=== PATIENT | male | born 1935 | race Caucasian/White ===

== ENCOUNTER → 2020-06-21 | Day surgery (SDC) | payer MEDICARE, OTHER ==
[~2020-06-21] MED LIST: ASPIRIN EC81 MG PO; CARAFATE1 GM PO; CARBIDOPA-LEVO1 EAC6 PO; CLARITIN10 MG PO; FLORINEF0.1 MG PO; ISOSORBIDE MONO60 M1 PO; LEVETIRACETAM500 MG PO; LIPITOR20 MG PO; LISINOPRIL10 MG PO; LOPID600 MG PO; LOPRESSOR25 MG PO; LOVAZA1 GM PO; PROAMATINE5 MG PO; PROSCAR5 MG PO; PROTONIX 40MG T40 MG PO; REMERON15 MG PO; STOOL SOFTENER50 MG PO; TEGRETOL200 MG PO; VENTOLIN HFA IN18 GM INH; ZOLOFT50 MG PO
== END | disposition home or self-care (01) ==
LOC: FAS 07:40
DX: K22.2 Esophageal obstruction (principal); D12.0 Benign neoplasm of cecum; D12.2 Benign neoplasm of ascending colon; K20.80 Other esophagitis without bleeding; K44.9 Diaphragmatic hernia without obstruction or gangrene; K25.9 Gastric ulcer, unspecified as acute or chronic, without hemorrhage or perforation; K64.0 First degree hemorrhoids; K63.89 Other specified diseases of intestine; J45.909 Unspecified asthma, uncomplicated; I10 Essential (primary) hypertension; Z20.822 Contact with and (suspected) exposure to COVID-19; Z86.010 Personal history of colon polyps; Z79.899 Other long term (current) drug therapy
CPT/HCPCS: 88305; 88342; J0360; J2250; J2704; J7120